=== PATIENT | male | born 1975 | race Two or more races ===

== ENCOUNTER 2024-10-11 19:17 | Emergency (ER) | payer MEDICAID, OTHER ==
[~2024-10-11] VITALS: Ht 177.8 cm; Wt 45.4 kg
[2024-10-12 00:53] VITALS: BP 115/60; TEMP 98.7; O2SAT 98
[2024-10-12] MEDS ORDERED: DOXY100C2 PO (09:19)
[2024-10-12] MEDS ORDERED: NALO4SPR BNOSTRILS (09:19)
[2024-10-12] MEDS ORDERED: CEPH-570 PO (09:19)
== END 2024-10-12 01:01 | disposition left against medical advice (07) ==
LOC: ER 19:19
DX: M79.632 Pain in left forearm (principal); Z53.21 Procedure and treatment not carried out due to patient leaving prior to being seen by health care provider

== ENCOUNTER 2024-10-12 09:06 | Emergency (ER) | payer MEDICAID ==
[~2024-10-12] VITALS: Ht 177.8 cm; Wt 65.8 kg
[2024-10-12 09:10] VITALS: BP 125/77; TEMP 98.3
[2024-10-12] MEDS ORDERED: DOXY100C2 PO (09:19)
[2024-10-12] MEDS ORDERED: NALO4SPR BNOSTRILS (09:19)
[2024-10-12] MEDS ORDERED: CEPH-570 PO (09:19)
[2024-10-12] MEDS ORDERED: DOXYCYCLINE HYCLATE (100 MG) 100 MG TABLET ONE (09:27)
[2024-10-12] MEDS ORDERED: CEPHALEXIN MONOHYDRATE 500 MG CAPSULE PO ONE (09:27)
[2024-10-12] MEDS: DOXYCYCLINE HYCLATE (100 MG) 100 MG TABLET PO ONE (09:31)
[2024-10-12] MEDS: CEPHALEXIN MONOHYDRATE 500 MG CAPSULE PO ONE (09:31)
[2024-10-12 09:33] VITALS: O2SAT 99
== END 2024-10-12 09:34 | disposition home or self-care (01) ==
LOC: ER 09:10
DX: L02.414 Cutaneous abscess of left upper limb (principal); Z59.00 Homelessness unspecified; Z91.030 Bee allergy status